=== PATIENT | female | born 1985 | race Caucasian/White ===

== ENCOUNTER → 2020-10-04 | Outpatient (REF) | LOC: M LAB REF 12:36 | PROVIDERS: ATTEND Obstetrics & Gynecology | DX: Z00.00 Encounter for general adult medical examination without abnormal findings (principal) ==

== ENCOUNTER → 2020-10-23 | Outpatient (CLI) | payer OTHER ==
[2020-10-23 11:09] LABS: FREE T4 0.85 NG/DL (0.76-1.46); THYROID STIMULATING HORMONE 0.648 uIU/ML (0.358-3.740)
== END ==
LOC: M LAB 09:37
PROVIDERS: ATTEND Internal Medicine
DX: E03.9 Hypothyroidism, unspecified (principal)

== ENCOUNTER → 2024-01-05 | Outpatient (REF) | LOC: M LAB 11:19 | PROVIDERS: ATTEND Family Medicine | DX: Z00.00 Encounter for general adult medical examination without abnormal findings (principal) ==